=== PATIENT | male | born 1995 | race Caucasian/White ===

== ENCOUNTER 2019-04-15 11:01 | Emergency (ER) | payer OTHER ==
[2019-04-15 11:08] VITALS: TEMP 98.1; BMI 30.4
[2019-04-15] MEDS ORDERED: KETOROLAC TROMETHAMINE 15 MG/ML VIAL IVPUSH ONE (11:28)
[2019-04-15] MEDS ORDERED: ONDANSETRON 4 MG/2 ML VIAL IVPUSH ONE (11:28)
[2019-04-15] MEDS ORDERED: SODIUM CHLORIDE 0.9% 500 ML INFUS.BAG IV ONE (11:30)
[2019-04-15] MEDS ORDERED: KETOROLAC TROMETHAMINE 15 MG/ML VIAL ONE (11:32)
--- NOTE | 2019-04-15 11:55 | PDOC ---
Documentation entered by Nahed Wilkins SCRIBE, acting as scribe for Nila Treviño MD. Nila Treviño MD: This documentation has been prepared by the Franky gerardo Nirvannie, SCRIBE, under my direction and personally reviewed by me in its entirety. I confirm that the documentation accurately reflects all work, treatment, procedures, and medical decision making performed by me. History of Present Illness - General Chief Complaint: Pain, Acute Stated Complaint: RT SIDE ABD PAIN Time Seen by Provider: 04/15/19 11:21 History Source: Patient Exam Limitations: No Limitations - History of Present Illness Initial Comments: 04/15/19 12:07 HPI: 23YOM with no significant past medical history who presents to the ED with sudden onset right flank pain this morning, nonradiating. Patient describes his pain as a sharp pain without any worsening or alleviating factors. 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 no similar sx int he past. Denies any dysuria, frequency, urgency, hesitancy, or hematuria. Denies any testicular or penile pain. Denies any penile drainage. Denies fever, chills, chest pain, SOB, palpitations, dizziness, weakness, N, V, D, bladder and bowel problems, leg swelling, No sick contacts or travel. No new changes in medications. no trauma. no heavy lifting. Allergies: None Past Medical History: none PSH: none Social history: Social EtOH. No tobacco, or drug use. Surgical history: None reported. Meds: as documented in EMR Review of systems: Constitutional: no fevers or chills. HEENT: no headache or dizziness. No congestion. No visual/hearing disturbances. CVS: no cp or syncope. Resp: no sob. No cough. Gastrointestinal: +abdominal pain +flank pain, No nausea or vomiting. no diarrhea or constipation. Genitourinary: +Right flank pain. no urinary sx, hematuria. no frequency or urgency or dysuria. no urethral discharge, no scrotal/testicular pain/swelling MUSCULOSKELETAL: No joint pain and swelling. No neck or back pain. SKIN: no redness or skin changes, no discharge, no rash. No wounds. Hematologic: no easy bruising/bleeding. NEUROLOGIC: No headache, dizziness, LOC or altered mental status. No weakness, numbness or tingling. Psych: no anxiety or depression Allergic/Immunologic: no allergies All other systems reviewed and negative, or as documented in HPI. Physical exam: General: +Colicky appearing, awake and alert, NAD. HEENT: NCAT, PERRL, EOMI, clear conjunctiva, anicteric, moist mucous membranes , clear oropharynx, no oral lesions.. Neck: neck supple, FROM Resp: CTAB, normal and even respirations, no respiratory distress CVS: RRR, no murmurs, 2+ peripheral pulses throughout, no peripheral edema Abdomen: soft, NTND, no rebound or guarding. No CVAT. : normal external genitalia, no lesions, normal testicular lie, no scrotal or testicular edema or tenderness. +cremaster reflex bilaterally. no hernia. Back: +R CVA tenderness. normal inspection and ROM MSK: no edema, QUINTEROS x4, ROM intact. No clubbing or cyanosis. normal bulk and tone. Extremities: no calf tenderness Neuro: alert, oriented appropriately; no focal neurologic deficits Skin: warm and well perfused, cap refill <2 sec, normal color 04/15/19 12:33 Past History - Past Medical History Allergies/Adverse Reactions: Allergies Allergy/AdvReac Type Severity Reaction Status Date / Time No Known Allergies Allergy Verified 04/15/19 11:08 Home Medications: Ambulatory Orders Ibuprofen 600 mg PO QID PRN #20 tablet 04/15/19 Ondansetron HCl [Zofran] 4 mg PO TID PRN #9 tablet 04/15/19 Oxycodone HCl 10 mg PO QID PRN #12 tablet MDD 4 04/15/19 - Psycho Social/Smoking Cessation Hx Smoking History: Never smoked *Physical Exam - Vital Signs Last Vital Signs Temp Pulse Resp BP Pulse Ox 98.1 F 62 28 H 186/68 H 99 04/15/19 11:04 04/15/19 11:04 04/15/19 11:04 04/15/19 11:04 04/15/19 11:04 ED Treatment Course - LABORATORY CBC & Chemistry Diagram: 04/15/19 11:30 04/15/19 11:30 - RADIOLOGY Radiology Studies Ordered: Category Date Time Status KIDNEY / RENAL US [US] Stat Ultrasound 04/15/19 11:30 Ordered Medical Decision Making - Medical Decision Making 04/15/19 11:54 Vital Signs Temp Pulse Resp BP Pulse Ox 98.1 F 62 28 H 186/68 H 99 04/15/19 11:04 04/15/19 11:04 04/15/19 11:04 04/15/19 11:04 04/15/19 11:04 VS reviewed, afebrile, hypertensive likely 2/2 pain no tachycardia no fever, nontoxic/septic appearing Clinically the patient presents with symptomatic ureterolithiasis (kidney stones ). bedside pocus renal exam with right moderate hydronephrosis, color doppler and B mode. no pelvic FF. official sono to confirm. IV pain medications, antiemetics, and IV fluids were given. An ultrasound was obtained for concern for a possible obstructing kidney stone and to rule out other pathologic conditions. renal sono confirms right moderate hydronephrosis/prox ureter, so likely from symptomatic stone. no stone was visualized given pt is young and healthy and clinical sx suggest of ureteral colic/passage of stone, risks outweigh benefits of getting CT imaging/radiation. The patient's labs were significant for normal results, no wbc ct, normal renal function UA_neg prelim for infection, +blood c/w passage of stone. pt passed stone while here, give back to him for sampling. VS repeated, normalized, initially likely due to pain With pain medication the patient improved significantly. The patient is referred to the on-call urologist as well as additional referrals for follow up and is discharged with oral narcotics for pain control, antiemetics, and given the following return precautions: Fever > 100.5, pain not controlled with narcotics, worsening pain, dehydration, vomiting or any other concerns and to strain the urine. NSAIDS/tylenol for mild to moderate pain, rx oxycodone PRN for more severe pain. zofran for nausea, adequate hydration and oral fluids and air conditioning in hot weather. literature/evidence low for flomax benefit, so defer. urine strainer to catch urine. instructions provided in nepalese Pt to be discharged in stable condition. Patient made aware of clinical impression, treatment recommendations and disposition plan, return precautions discussed (including but not limited to new or persistent/worsening symptoms, pain, fevers, or signs of infection, chest pain, respiratory distress, inability to tolerate oral intake, dehydration, syncope, or neurologic changes) . Follow up with PMD and/or uro specialist as recommended, follow up information provided, take medications as instructed for duration of time. continue with supportive care, avoid triggers and precipitants. All questions answered to patient's satisfaction and expressed understanding and comfort with this. At the time of discharge, the patient is alert, clinically improved, tolerating po and verbalizes understanding of instructions, satisfied with the care received and felt comfortable with the plan. Patient does not suffer from an acute life-threatening medical condition at this time and is safe for outpatient follow-up. 04/15/19 15:23 Discharge - Discharge Information Problems reviewed: Yes Clinical Impression/Diagnosis: Ureteral stone with hydronephrosis Condition: Improved Disposition: HOME - Admission No - Additional Discharge Information Prescriptions: Ibuprofen 600 mg PO QID PRN #20 tablet PRN Reason: Mild Pain Ondansetron HCl [Zofran] 4 mg PO TID PRN #9 tablet PRN Reason: nausea/vomiting Oxycodone HCl 10 mg PO QID PRN #12 tablet MDD 4 PRN Reason: Severe Pain - Follow up/Referral Referrals: Arnie Christensen MD [Staff Physician] - Claudy Haney MD [Staff Physician] - Angelito Jolley MD [Staff Physician] - - Patient Discharge Instructions Patient Printed Discharge Instructions: DI for Kidney Stones Additional Instructions: Your ultrasound results were significant for swelling of collecting system, suggesting a kidney stone you are likely passing you also passed the kidney stone here, so take this to the urologist for sampling Drink plenty of water/fluids, avoid caffeine or alcohol Strain all urine for the next 1-2 days and save any stone for analysis Ibuprofen/naproxen/acetaminophen as needed for [id number] pain. Use Motrin (also called Ibuprofen or Advil) 400 mg every 6 hours as needed for pain. If you have any stomach discomfort while taking Motrin, you can use TUMS to help. Oxycodone every 6 hours as needed for severe pain; Please do not drive or operate heavy machinery while on this medication because it can impair your judgement. This is a very addictive medication, do not take it unless you absolutely have to. Return to ER if you experience persistent pain/vomiting/fever/dehydration, difficulty urinating or inability to tolerate oral intake. Follow-up with your primary doctor within the next 2-3 days. Urologist follow up this week, referral given as well. (we will give you a list of urologists, but make sure they accept your insurance). Please bring your labs and imaging with you to your appointment. ------ Los resultados de poe ultrasonido fueron significativos para la inflamacin del sistema colector, lo que sugiere un clculo renal que probablemente est pasando tambin pasaste el clculo renal aqu, as que llvalo al urlogo para que tome muestras Qi shana agua / lquidos, evite la cafena o el alcohol. Colar toda la orina leigh ann los prximos 1-2 hernandez y guardar cualquier clculo para poe anlisis. Ibuprofeno / naproxeno / acetaminofeno segn sea necesario para el dolor leve a moderado. Use Motrin (tambin llamado Ibuprofeno o Advil) 400 mg cada 6 horas segn sea necesario para el dolor. Si tiene alguna molestia estomacal mientras vito Motrin, puede usar TUMS para ayudar. Oxicodona cada 6 horas segn sea necesario para el dolor intenso; No conduzca ni maneje maquinaria pesada mientras est tomando maia medicamento porque puede afectar poe criterio. Maia es un medicamento muy adictivo, no lo tome a menos que sea absolutamente necesario. Regrese a la radha de emergencias si experimenta dolor / vmitos / fiebre / deshidratacin persistentes, dificultad para orinar o incapacidad para tolerar la ingesta oral. Marc un seguimiento con poe mdico de atencin primaria dentro de los prximos 2- 3 hernandez. Seguimiento del urlogo esta semana, tambin se hace referencia. (le daremos shraddha lista de urlogos, naima nos aseguraremos de que acepten poe seguro). Por favor traiga jesse laboratorios e imgenes a poe roe. - Post Discharge Activity Work/Back to School Note: Back to Work
[2019-04-15] MEDS ORDERED: ONDANSETRON 4 MG/2 ML VIAL ONE (12:10)
[2019-04-15 12:15] LABS: BASO % 0.5 % (0-2.0); EOS % 3.1 % (0-4.5); HEMOGLOBIN 14.3 GM/dL (11.7-16.9); LYMPH % 36.3 % (8-40); MCH 31.2 pg (25.7-33.7); MCHC 34.1 g/dl (32.0-35.9); MEAN CELL VOLUME 91.7 fl (80-96); MEAN PLT VOLUME 10.1 fl (7.5-11.1); MONO % 7.9 % (3.8-10.2); NEUT % 52.2 % (42.8-82.8); PLATELET COUNT 249 K/MM3 (134-434); RBC 4.58 M/mm3 (4.00-5.60); RDW 13.3 % (11.9-15.9); WHITE BLOOD COUNT 5.2 K/mm3 (4.0-10.0)
[2019-04-15 12:48] LABS: ALBUMIN 4.4 g/dl (3.4-5.0); BILIRUBIN,TOTAL 0.4 mg/dL (0.2-1); BLOOD UREA NITROGEN 12.7 mg/dL (7-18); CALCIUM 9.3 mg/dL (8.5-10.1); CREATININE 0.9 mg/dL (0.55-1.3); POTASSIUM 4.5 mmol/L (3.5-5.1); TOT PROT 8.1 g/dl (6.4-8.2)
[2019-04-15 14:59] LABS: PH,URINE 5.5 (5.0-8.0); URINE APPEARANCE Clear; URINE BILIRUBIN Negative (NEGATIVE); URINE COLOR Yellow; URINE GLUCOSE (UA) Negative (NEGATIVE); URINE KETONE Negative (NEGATIVE); URINE LEUK ESTERASE Negative (NEGATIVE); URINE NITRITE Negative (NEGATIVE); URINE PROTEIN Negative (NEGATIVE); URINE UROBILINOGEN 0.2 mg/dL (0.2-1.0)
[2019-04-15 15:39] VITALS: BP 121/71; PULSE 67
== END 2019-04-15 15:45 | disposition home or self-care (01) ==
LOC: JER 11:01
PROC: 3E033GC Introduction of Other Therapeutic Substance into Peripheral Vein, Percutaneous Approach (ICD-10-PCS; principal; 2019-04-15)
PROC: 3E0333Z Introduction of Anti-inflammatory into Peripheral Vein, Percutaneous Approach (ICD-10-PCS; 2019-04-15)
DX: N13.2 Hydronephrosis with renal and ureteral calculous obstruction (principal)
CPT/HCPCS: 36415; 76775-TC; 80053; 81003; 83690; 85025; 96374; 96375; 99283-25

== ENCOUNTER 2022-02-15 11:00 | Emergency (ER) | payer OTHER ==
[2022-02-15 11:34] VITALS: BP 147/75; PULSE 104; RESP 19; TEMP 100.9; BMI 32.5
[2022-02-15] MEDS ORDERED: ACETAMINOPHEN 325 MG TABLET (FP) PO ONE (11:39)
[2022-02-15] MEDS ORDERED: ACETAMINOPHEN 325 MG TABLET (FP) ONE (12:40)
== END 2022-02-15 13:40 | disposition home or self-care (01) ==
LOC: JER 11:00
DX: R50.9 Fever, unspecified (principal); R51.9 Headache, unspecified; R11.2 Nausea with vomiting, unspecified; R19.7 Diarrhea, unspecified
CPT/HCPCS: 0241U-QW; 99283-25